=== PATIENT | female | born 1985 | race Caucasian/White ===

== ENCOUNTER → 2018-01-13 | Outpatient (CLI) | payer OTHER ==
[~2018-01-13] VITALS: Ht 170.2 cm; Wt 90.9 kg
[~2018-01-13] MED LIST: AMOXICILLIN500 MG PO; ANITBIOTIC; AUGMENTIN875 MG PO; CEFDINIR300 MG PO; CODEINE-GUAIFE473 ML PO; Colace PO; ENDOCET 5-3251 EACH PO; FEOSOL325 MG PO; Feosol PO; IBUPROFEN800 MG PO; INHALER; METHADONE 22 MG/1 ML PO; Motrin PO; NAPROSYN500 MG PO; ONDANSETRON HCL4 MG PO; ONDANSETRON4 MG/2 ML PO; PERCOCET 5/31 TABLET PO; PROVENTIL,2.5 MG/0.5 IH
[2018-01-13 15:48] VITALS: BP 122/74
== END | disposition home or self-care (01) ==
LOC: IVINF 01-11 16:30
DX: O20.9 Hemorrhage in early pregnancy, unspecified (principal); Z67.91 Unspecified blood type, Rh negative
CPT/HCPCS: J2790